=== PATIENT | female | born 1945 | race Caucasian/White ===

== ENCOUNTER → 2017-11-17 | Outpatient (CLI) | payer MEDICARE, OTHER ==
[~2017-11-17] MED LIST: ALEVE220 MG PO; AMPYRA10 MG PO; ASPIR 8181 MG PO; BUDEPRION XL300 MG PO; BUPROPION; BUPROPION XL300 MG PO; CIPRO500 M1 PO; IBUPROFEN200 M2 PO; LIPITOR10 MG PO; MACROBID 100 M100 M1 PO; TOVIAZ8 MG PO
== END ==
LOC: M.MRI 15:46
DX: M51.34 Other intervertebral disc degeneration, thoracic region (principal); M51.36 Other intervertebral disc degeneration, lumbar region; M41.86 Other forms of scoliosis, lumbar region; M47.892 Other spondylosis, cervical region; M25.78 Osteophyte, vertebrae; G95.0 Syringomyelia and syringobulbia

== ENCOUNTER → 2017-11-19 | Outpatient (CLI) | payer MEDICARE, OTHER | LOC: M.MRI 06:49 | DX: M43.22 Fusion of spine, cervical region (principal); G95.0 Syringomyelia and syringobulbia ==

== ENCOUNTER → 2017-12-24 | Outpatient (CLI) | payer MEDICARE, OTHER ==
[2017-12-24 16:41] LABS: ALBUMIN 3.8 g/dL (3.4-5.0); CALCIUM 9.1 mg/dL (8.5-10.1); CREATININE 0.8 mg/dL (0.6-1.3); PHOSPHORUS* 3.3 mg/dL (2.5-4.9); POTASSIUM 4.1 mmol/L (3.5-5.1)
== END ==
LOC: M.LAB 16:03 → M.MRI 17:30
PROVIDERS: Psychiatry & Neurology Neurology
DX: G35 Multiple sclerosis (principal)

== ENCOUNTER 2018-12-12 12:17 | Emergency (ER) | payer MEDICARE, OTHER ==
[~2018-12-12] VITALS: Ht 157.5 cm; Wt 47.6 kg
[2018-12-12] MEDS ORDERED: WELLBUTRIN SR150 MG PO (12:31)
[2018-12-12] MEDS ORDERED: ACETAMINOPHEN-1 EAC1 PO (13:06)
[2018-12-12 13:23] VITALS: BP 135/68
== END 2018-12-12 13:23 | disposition home or self-care (01) ==
LOC: M.ERS 12:17
DX: S93.601A Unspecified sprain of right foot, initial encounter (principal); E89.0 Postprocedural hypothyroidism; X50.3XXA Overexertion from repetitive movements, initial encounter; Y93.89 Activity, other specified; Y92.89 Other specified places as the place of occurrence of the external cause; Y99.8 Other external cause status

== ENCOUNTER 2020-04-10 10:16 | Emergency (ER) | payer MEDICARE, OTHER ==
[~2020-04-10] VITALS: Ht 157.5 cm; Wt 46.7 kg
[~2020-04-10 10:16] MED LIST changes: +ACETAMINOPHEN-1 EAC1 PO; +WELLBUTRIN SR150 MG PO
[2020-04-10 10:44] LABS: URINE BILIRUBIN NEGATIVE (Negative); URINE BLOOD 3+ (Negative); URINE CLARITY CLEAR; URINE COLOR YELLOW; URINE GLUCOSE-RANDOM NEGATIVE (Negative); URINE KETONES NEGATIVE (Negative); URINE PROTEIN TRACE (Negative); URINE SPECIFIC GRAVITY 1.015 (1.005-1.030); URINE UROBILINOGEN 0.2 E.U./dl (0.2-1.0)
[2020-04-10 10:48] LABS: URINE LEUKOCYTES-REFLEX 3+ (Negative); URINE NITRITE-REFLEX POSITIVE (Negative)
[2020-04-10 10:51] LABS: BACTERIA-REFLEX >30 Many /HPF (None Seen); MUCUS 0-3 Light strn/LPF (None Seen); SQUAMOUS 0-3 Few /LPF (0-3); URINE RBC 3-10 Few /HPF (0-2)
[2020-04-10 10:52] LABS: CASTS None Seen /LPF (None Seen); CRYSTALS None Seen /LPF (None Seen)
[2020-04-10] MEDS ORDERED: KEFLEX500 M1 PO ×4 (10:59→11:09)
[2020-04-10 11:07] VITALS: BP 126/68
== END 2020-04-10 11:08 | disposition home or self-care (01) ==
LOC: M.ERS 10:16
PROVIDERS: Nurse Practitioner Family
DX: N39.0 Urinary tract infection, site not specified (principal); E78.5 Hyperlipidemia, unspecified

== ENCOUNTER 2020-05-18 12:10 | Inpatient (IN) | payer MEDICARE, OTHER ==
[~2020-05-18] VITALS: Ht 157.5 cm; Wt 46.7 kg
[~2020-05-18 12:10] MED LIST changes: +KEFLEX500 M1 PO
[2020-05-18 12:20] VITALS: BP 157/50
[2020-05-18] MEDS ORDERED: COSENTYX P150 MG/11 SUBQ (12:23)
[2020-05-18 12:38] LABS: ABSOLUTE BASOPHILS 0.1 thou/uL (0.0-0.2); ABSOLUTE EOSINOPHILS 0.1 thou/uL (0.0-0.7); ABSOLUTE LYMPHOCYTES 2.4 thou/uL (0.8-5.3); ABSOLUTE MONOCYTES 0.8 thou/uL (0.0-1.2); ABSOLUTE NEUTROPHILS 9.7 thou/uL (1.6-8.1); BASOPHILS 0.4 %; EOSINOPHILS 0.6 %; HEMATOCRIT 33.5 % (37.0-47.0); HEMOGLOBIN 11.1 gm/dL (12.0-15.0); LYMPHOCYTES 18.1 %; MCH 29.3 pg (26.0-34.0); MCHC 33.1 g/dL (28.0-37.0); MCV 88.3 fL (80.0-100.0); MONOCYTES 6.3 %; MPV 7.6 fl. (7.2-11.1); NUCLEATED RBCS 0 /100WBC; PLATELET COUNT* 315 thou/uL (150-400); POLYS 74.6 %; RDW-CV 14.5 % (10.5-14.5); WBC 13.1 thou/uL (4.0-11.0)
[2020-05-18 12:53] LABS: APTT 24.5 Seconds (25.0-31.3)
[2020-05-18 13:01] LABS: CREATININE 1.6 mg/dL (0.6-1.3); POTASSIUM 3.1 mmol/L (3.5-5.1)
[2020-05-18 13:03] LABS: CALCIUM 13.8 mg/dL (8.5-10.1)
[2020-05-18 13:11] LABS: ALBUMIN 3.5 g/dL (3.4-5.0); TOTAL BILIRUBIN 0.5 mg/dL (<0.1-1.0); TOTAL PROTEIN 7.2 g/dL (6.4-8.2)
[2020-05-18 13:30] LABS: URINE BILIRUBIN NEGATIVE (Negative); URINE BLOOD 2+ (Negative); URINE CLARITY CLEAR; URINE COLOR YELLOW; URINE GLUCOSE-RANDOM NEGATIVE (Negative); URINE KETONES NEGATIVE (Negative); URINE NITRITE-REFLEX NEGATIVE (Negative); URINE PROTEIN 1+ (Negative); URINE UROBILINOGEN 0.2 E.U./dl (0.2-1.0)
[2020-05-18 13:32] LABS: URINE LEUKOCYTES-REFLEX 2+ (Negative)
[2020-05-18 13:39] LABS: BACTERIA-REFLEX >30 Many /HPF (None Seen); CASTS None Seen /LPF (None Seen); CRYSTALS None Seen /LPF (None Seen); SQUAMOUS 0-3 Few /LPF (0-3); URINE RBC 0-2 Rare /HPF (0-2); URINE WBC-REFLEX >25 Many /HPF (0-5)
[2020-05-18 14:55] VITALS: BP 138/54
--- NOTE | 2020-05-18 15:52 | EKG ---
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
[2020-05-18 16:00] VITALS: BP 137/63
[2020-05-18 18:12] LABS: CREATININE 1.4 mg/dL (0.6-1.3)
[2020-05-18 18:23] LABS: POTASSIUM 2.8 mmol/L (3.5-5.1)
[2020-05-18 18:24] LABS: CALCIUM 12.1 mg/dL (8.5-10.1)
[2020-05-18 18:28] LABS: CREATININE 1.6 mg/dL (0.6-1.3)
[2020-05-18 20:00] VITALS: BP 130/59
[2020-05-19] VITALS: BP 123/53
[2020-05-19 04:00] VITALS: BP 125/50
[2020-05-19 04:04] LABS: HEMATOCRIT 27.5 % (37.0-47.0); HEMOGLOBIN 9.2 gm/dL (12.0-15.0); MCH 29.6 pg (26.0-34.0); MCHC 33.4 g/dL (28.0-37.0); MCV 88.5 fL (80.0-100.0); MPV 8.1 fl. (7.2-11.1); RBC 3.11 mil/uL (4.20-5.00); RDW-CV 14.6 % (10.5-14.5); WBC 7.9 thou/uL (4.0-11.0)
[2020-05-19 04:32] LABS: CALCIUM 10.6 mg/dL (8.5-10.1); CREATININE 1.4 mg/dL (0.6-1.3); MAGNESIUM 1.2 mg/dL (1.8-2.4); TOTAL BILIRUBIN 0.2 mg/dL (<0.1-1.0); TOTAL PROTEIN 6.3 g/dL (6.4-8.2)
[2020-05-19 04:34] LABS: POTASSIUM 3.9 mmol/L (3.5-5.1)
[2020-05-19 08:00] VITALS: BP 123/68
[2020-05-19 12:05] VITALS: BP 120/48
[2020-05-19 16:00] VITALS: BP 126/54
[2020-05-19 20:00] VITALS: BP 114/48
[2020-05-20 06:34] VITALS: BP 112/40
[2020-05-20] MEDS ORDERED: ACIDOPHILUS1 EAC4 PO (07:26)
[2020-05-20] MEDS ORDERED: MACROBID 100 M100 MG PO (07:26)
[2020-05-20] MEDS ORDERED: PREDNISONE 20 M20 MG PO (07:26)
[2020-05-20 07:40] VITALS: BP 109/57
[2020-05-20 08:04] LABS: HEMATOCRIT 25.5 % (37.0-47.0); HEMOGLOBIN 8.4 gm/dL (12.0-15.0); MCH 29.2 pg (26.0-34.0); MCV 88.6 fL (80.0-100.0); MPV 8.7 fl. (7.2-11.1); RBC 2.88 mil/uL (4.20-5.00); RDW-CV 14.8 % (10.5-14.5); WBC 14.1 thou/uL (4.0-11.0)
[2020-05-20 08:17] LABS: ALBUMIN 2.9 g/dL (3.4-5.0); CALCIUM 9.1 mg/dL (8.5-10.1); CREATININE 1.2 mg/dL (0.6-1.3); MAGNESIUM 1.7 mg/dL (1.8-2.4); POTASSIUM 3.4 mmol/L (3.5-5.1); TOTAL BILIRUBIN 0.1 mg/dL (<0.1-1.0)
[2020-05-20 10:21] VITALS: BP 109/57
--- NOTE | 2020-05-20 12:59 | CON ---
[address] [address] CONSULTATION Name: DAVIPREETI E Room: [address]#: [id number] Admission: 05/18/20 Attend Phys: Shelbie Currie MD Discharge: 05/20/20 Date of : 47 Report #: [id number] THIS REPORT FOR: //name// cc: Maryuri Pratt Anna S. DO ~ THIS REPORT FOR: //name// CC: Maryuri Currie DATE OF SERVICE: 05/19/2020 REQUESTING PHYSICIAN: Dr. Currie. REASON FOR CONSULTATION: Hypercalcemia. HISTORY OF PRESENT ILLNESS: The patient is a 74-year-old female with medical history significant for multiple sclerosis and frequent UTIs. She presents with complaints of some nausea, vomiting, weakness and urinary frequency. In the Emergency Room, she was found to have serum creatinine of 1.6, baseline normal according to the patient. Her calcium on admission was 13.8. She was found to be volume depleted. She was given fluids. Her calcium this morning improved to 10.6. Creatinine improved to 1.4. PAST MEDICAL HISTORY: She has history of parathyroidectomy. SOCIAL HISTORY: No tobacco or alcohol abuse. FAMILY HISTORY: Noncontributory. MEDICATIONS: Reviewed. REVIEW OF SYSTEMS: Positive weakness, positive dysuria and nausea and vomiting. PHYSICAL EXAMINATION: GENERAL: Awake, alert, oriented, no acute distress. VITAL SIGNS: Blood pressure 123/68, heart rate 88, afebrile. HEENT: Pupils are round. NECK: Supple. LUNGS: Clear. CARDIOVASCULAR: Regular rate. ABDOMEN: Soft. LOWER EXTREMITIES: No edema. ASSESSMENT: 1. Hypercalcemia, likely due to volume depletion due to nausea and vomiting. [address] [address] CONSULTATION Name: DAVIPREETI Room: [address]#: [id number] Admission: 05/18/20 Attend Phys: Shelbie Currie MD Discharge: 05/20/20 Date of : 47 Report #: [id number] 2. Acute kidney injury due to volume depletion. 3. Multiple sclerosis. 4. Hypomagnesemia due to poor p.o. intake. PLAN: 1. Replace magnesium. 2. Replace potassium. She also had hypokalemia. 3. Continue IV hydration. 4. Check her intact PTH. 5. I will follow on those levels and await Urology input. Her calcium is already significantly better. I do not think that she has multiple myeloma. <ELECTRONICALLY SIGNED> By: Neo Lehman MD 05/20/20 1259 0919 [facility] Vikas Lehman MD /nt
== END 2020-05-20 12:28 | disposition home or self-care (01) | DRG 58 ==
LOC: M.ERS 12:10 → M.2W 13:49 → M.TBA-ER 13:49 → M.2W 15:16
PROVIDERS: Family Medicine; ADMIT Internal Medicine; ATTEND Internal Medicine
DX: G35 Multiple sclerosis (principal); R65.11 Systemic inflammatory response syndrome (SIRS) of non-infectious origin with acute organ dysfunction; N39.0 Urinary tract infection, site not specified; N17.9 Acute kidney failure, unspecified; F44.4 Conversion disorder with motor symptom or deficit; E83.52 Hypercalcemia; E87.6 Hypokalemia; M81.0 Age-related osteoporosis without current pathological fracture; E78.5 Hyperlipidemia, unspecified; E86.0 Dehydration; E86.9 Volume depletion, unspecified; E83.42 Hypomagnesemia; R11.2 Nausea with vomiting, unspecified; Z20.828 Contact with and (suspected) exposure to other viral communicable diseases; Z79.899 Other long term (current) drug therapy

== ENCOUNTER 2021-10-16 03:14 | Emergency (ER) | payer MEDICARE, OTHER ==
[~2021-10-16] VITALS: Ht 157.5 cm; Wt 46.7 kg
[~2021-10-16 03:14] MED LIST changes: +ACIDOPHILUS1 EAC4 PO; +COSENTYX P150 MG/11 SUBQ; +MACROBID 100 M100 MG PO; +PREDNISONE 20 M20 MG PO
[2021-10-16 03:53] LABS: ABSOLUTE EOSINOPHILS 0.1 thou/uL (0.0-0.7); ABSOLUTE LYMPHOCYTES 2.7 thou/uL (0.8-5.3); ABSOLUTE MONOCYTES 0.5 thou/uL (0.0-1.2); BASOPHILS 0.6 %; EOSINOPHILS 1.9 %; HEMOGLOBIN 11.5 gm/dL (12.0-15.0); LYMPHOCYTES 42.4 %; MCH 29.1 pg (26.0-34.0); MCHC 31.9 g/dL (28.0-37.0); MCV 91.2 fL (80.0-100.0); MONOCYTES 7.3 %; MPV 8.2 fl. (7.2-11.1); NUCLEATED RBCS 0 /100WBC; PLATELET COUNT* 209 thou/uL (150-400); POLYS 47.8 %; RBC 3.95 mil/uL (4.20-5.00); RDW-CV 15.1 % (10.5-14.5); WBC 6.3 thou/uL (4.0-11.0)
[2021-10-16 04:03] LABS: CALCIUM 8.2 mg/dL (8.5-10.1); CREATININE 0.9 mg/dL (0.6-1.3); POTASSIUM 4.1 mmol/L (3.5-5.1)
[2021-10-16 04:07] LABS: ALBUMIN 3.3 g/dL (3.4-5.0); TOTAL BILIRUBIN 0.2 mg/dL (<0.1-1.0); TOTAL PROTEIN 6.4 g/dL (6.4-8.2)
[2021-10-16] MEDS ORDERED: CARAFATE 1 GM TA1 GM PO (05:31)
[2021-10-16] MEDS ORDERED: OMEPRAZOLE 20 M20 M1 PO (05:31)
[2021-10-16 05:42] VITALS: BP 154/74
--- NOTE | 2021-10-16 09:15 | EKG ---
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1945 Requested By: Aniya Garcia Order Number: [id number] MD: Mau Lai Measurements Intervals [place] Rate: 82 P: 78 MT: 145 QRS: 65 QRSD: 80 T: 80 QT: 363 QTc: 424 Interpretive Statements Sinus rhythm Borderline abnrm T, anterolateral leads Compared to ECG 05/18/2020 12:24:20 No significant changes Electronically Signed On 10-16-2021 9:02:47 COMPUTER ENGINEERING TECHNOLOGIST by Mau Lai [email or web address] <ELECTRONICALLY SIGNED> By: Mau Lai MD, [facility] 10/16/21 0902 0322 0322 Mau Lai MD, [facility] /EPI
== END 2021-10-16 05:42 | disposition home or self-care (01) ==
LOC: M.ERS 03:14
PROVIDERS: Personal Emergency Response Attendant
DX: K21.00 Gastro-esophageal reflux disease with esophagitis, without bleeding (principal); E78.5 Hyperlipidemia, unspecified; L40.9 Psoriasis, unspecified; E89.0 Postprocedural hypothyroidism